=== PATIENT | female | born 1990 | race African-American/Black ===

== ENCOUNTER 2022-06-27 11:19 | Emergency (ER) | payer OTHER, SELFPAY ==
[2022-06-27] VITALS (11 sets, daily range): BP systolic 116–184; BP diastolic 57–107; PULSE 64–89; RESP 20; TEMP 36.5; O2SAT 92–100; BMI 40.3
[2022-06-27 12:05] LABS: Add Manual Diff / Slide Review NO; Basophils Absolute Auto 0 /uL (0-100); Basophils Percent Auto 0.8 % (0-2); Eosinophils Absolute Auto 300 /uL (0-450); Eosinophils Percent Auto 5.2 % (2-4); Hematocrit 37.3 % (36-46); Hemoglobin 12.2 g/dL (12.0-16.0); Lymphocytes Absolute Auto 2000 /uL (1100-4500); Lymphocytes Percent Auto 31.6 % (25-40); Mean Corpuscular HGB Conc 32.7 % (30-36); Mean Corpuscular Hemoglobin 25.7 PG (26-34); Mean Corpuscular Volume 78.6 fL (80-100); Monocytes Absolute Auto 600 /uL (0-900); Monocytes Percent Auto 9.7 % (3-14); Neutrophils Absolute Auto 3400 /uL (1500-7000); Neutrophils Percent Auto 52.7 % (50-75); Platelet Count 349 X10^3/uL (150-400); Red Blood Cell Count 4.74 X10^6/uL (4.0-5.2); Red Cell Distribution Width 16.9 % (11.6-14.8); White Blood Cell Count 6.4 X10^3/uL (4.5-11.0)
--- NOTE | 2022-06-27 12:10 | ED_ITS ---
HPI - Abdominal Pain <Demetrice García PA-C - Last Filed: 06/27/22 14:15> General Chief Complaint: Abdominal Pain Stated Complaint: sharp abd pain into r/leg Time Seen by Provider: 06/27/22 12:03 Source: patient Mode of arrival: Ambulatory History of Present Illness HPI narrative: 32-year-old female with no reported past medical history presents to the ED with 3 days of right-sided flank pain that wraps to the front, radiates down to the front of the right leg. Patient also notes some gurgling sounds from her abdo men. Patient denies any trauma. Patient denies fever, chills, chest pain, shortness of breath, nausea, vomiting, dysuria, diarrhea, lightheadedness, dizziness, syncope. No history of nephrolithiasis or cholelithiasis. Patient endorses 8/10 pain. Related Data Allergies Allergy/AdvReac Type Severity Reaction Status Date / Time No Known Drug Allergies Allergy Verified 06/27/22 11:39 Review of Systems <Demetrice García PA-C - Last Filed: 06/27/22 14:15> Review of Systems ROS Unobtainable: All systems reviewed & are unremarkable except as noted in HPI and below Constitutional Constitutional: Denies chills, Denies fatigue, Denies fever(s), Denies frequent falls, Denies lethargy and Denies weakness Eyes Eyes: Denies change in vision, Denies eye discharge, Denies irritation and Denies loss of vision ENT Ears, Nose, Mouth, and Throat: Denies change in voice, Denies dizziness, Denies neck pain, Denies sore throat and Denies throat swelling Cardiovascular Cardiovascular: Denies chest pain, Denies irregular heart rhythm, Denies l ightheadedness, Denies palpitations, Denies dyspnea, Denies dyspnea on exertion and Denies orthopnea Respiratory Respiratory: Denies cough, Denies dyspnea, Denies dyspnea on exertion and Denies wheezing Gastrointestinal Gastrointestinal: Reports abdominal pain, Denies change in bowel habits, Denies diarrhea, Denies nausea and Denies vomiting Comments: R sided flank pain Genitourinary Genitourinary: Denies hematuria, Denies flank pain, Denies urinary incontinence and Denies urinary urgency Musculoskeletal Musculoskeletal: Denies back pain, Denies muscle weakness, Denies neck pain, Denies numbness and Denies tingling Integumentary/Breasts Skin/Breast: Denies pruritus, Denies erythema, Denies rash and Denies wounds Neurologic Neurologic: Denies behavioral changes, Denies confusion, Denies dizziness, Denies frequent falls, Denies loss of vision, Denies numbness, Denies tingling and Denies weakness Psychiatric Psychiatric: Denies anxiety, Denies behavioral changes, Denies confusion, Denies depression, Denies homicidal ideation and Denies suicidal ideation Endocrine Endocrine: Denies fatigue, Denies flushing and Denies palpitations Hematologic/Lymphatic Hematologic/Lymphatic: Denies easy bruising Allergic/Immunologic Allergic/Immunologic: Denies urticaria, Denies throat swelling and Denies wheezing Patient History <Demetrice García PA-C - Last Filed: 06/27/22 14:15> Social History Smoking Status: Never smoker Smoking Status: Never smoker alcohol intake frequency: holidays/special occasions only Substance Use Type: does not use Exam <Demetrice García PA-C - Last Filed: 06/27/22 14:15> Narrative Exam Narrative: Const General:?cooperative, healthy appearing and comfortable [facility] Head:?normal to inspection Ears:?hearing grossly normal bilaterally Nose:?external nose normal Face and sinus:?normal facial exam and sinuses nontender Mouth:?oral mucosae normal Throat:?posterior oropharynx normal Eyes General:?appearance normal, both eyes and all related structures Neck Neck:?normal visual inspection and no lymphadenopathy noted Resp Effort & Inspection:?normal respiratory effort Auscultation:?clear to auscultation bilaterally Cardio Rate:?regular rate Rhythm:?regular rhythm GI Abdomen is soft, nondistended. Abdomen is tender to palpation in the right lower quadrant. There is no CVA tenderness. Neuro General:?patient alert, patient awake and patient oriented x3 Initial Vital Signs Initial Vital Signs: Vital Signs Temperature 97.7 F 06/27/22 11:35 Pulse Rate 84 06/27/22 11:35 Respiratory Rate 20 06/27/22 11:35 Blood Pressure 184/107 H 06/27/22 11:35 Pulse Oximetry 99 06/27/22 11:35 Oxygen Delivery Method Room Air 06/27/22 11:35 <Sahra Mello DO - Last Filed: 06/30/22 01:59> Initial Vital Signs Initial Vital Signs: Vital Signs Temperature 97.7 F 06/27/22 11:35 Pulse Rate 84 06/27/22 11:35 Respiratory Rate 20 06/27/22 11:35 Blood Pressure 184/107 H 06/27/22 11:35 Pulse Oximetry 99 06/27/22 11:35 Oxygen Delivery Method Room Air 06/27/22 11:35 Course <Demetrice García PA-C - Last Filed: 06/27/22 14:15> Orders Ordered: Discontinued Medications Ketorolac Tromethamine (Ketorolac 30 Mg/Ml Vial) 15 mg IV NOW ONE Stop: 06/27/22 12:21 Last Admin: 06/27/22 12:26 Dose: 15 mg Documented By: NICOLAS Ondansetron HCl (Ondansetron 4 Mg Odt) 4 mg PO NOW PRN PRN Reason: Nausea And Vomiting Ondansetron HCl (Ondansetron 4 Mg/2 Ml Inj) 4 mg IV NOW PRN PRN Reason: Nausea And Vomiting Vital Signs Vital signs: Vital Signs - 8 hr 06/27/22 11:35 06/27/22 11:39 06/27/22 11:59 Temperature 97.7 F Pulse Rate 84 76 Respiratory Rate 20 Blood Pressure 184/107 H 134/63 Pulse Oximetry 99 100 Oxygen Delivery Method Room Air 06/27/22 11:59 06/27/22 12:00 06/27/22 12:00 Temperature Pulse Rate 75 76 Respiratory Rate Blood Pressure 132/63 Pulse Oximetry 92 100 Oxygen Delivery Method Room Air 06/27/22 12:16 06/27/22 12:31 06/27/22 12:42 Temperature Pulse Rate 72 Respiratory Rate Blood Pressure 158/93 H 142/79 H Pulse Oximetry 99 Oxygen Delivery Method 06/27/22 12:42 06/27/22 13:00 06/27/22 13:00 Temperature Pulse Rate 89 65 Respiratory Rate Blood Pressure 130/85 Pulse Oximetry 100 100 Oxygen Delivery Method 06/27/22 13:30 06/27/22 13:30 06/27/22 14:00 Temperature Pulse Rate 67 64 Respiratory Rate Blood Pressure 137/77 Pulse Oximetry 100 99 Oxygen Delivery Method 06/27/22 14:01 06/27/22 14:01 Temperature Pulse Rate 68 Respiratory Rate Blood Pressure 116/57 L Pulse Oximetry 100 Oxygen Delivery Method Room Air <Sahra Mello DO - Last Filed: 06/30/22 01:59> Orders Ordered: Discontinued Medications Ketorolac Tromethamine (Ketorolac 30 Mg/Ml Vial) 15 mg IV NOW ONE Stop: 06/27/22 12:21 Last Admin: 06/27/22 12:26 Dose: 15 mg Documented By: NICOLAS Ondansetron HCl (Ondansetron 4 Mg Odt) 4 mg PO NOW PRN PRN Reason: Nausea And Vomiting Ondansetron HCl (Ondansetron 4 Mg/2 Ml Inj) 4 mg IV NOW PRN PRN Reason: Nausea And Vomiting Vital Signs Vital signs: Vital Signs - 8 hr 06/27/22 11:35 06/27/22 11:39 06/27/22 11:59 Temperature 97.7 F Pulse Rate 84 76 Respiratory Rate 20 Blood Pressure 184/107 H 134/63 Pulse Oximetry 99 100 Oxygen Delivery Method Room Air 06/27/22 11:59 06/27/22 12:00 06/27/22 12:00 Temperature Pulse Rate 75 76 Respiratory Rate Blood Pressure 132/63 Pulse Oximetry 92 100 Oxygen Delivery Method Room Air 06/27/22 12:16 06/27/22 12:31 06/27/22 12:42 Temperature Pulse Rate 72 Respiratory Rate Blood Pressure 158/93 H 142/79 H Pulse Oximetry 99 Oxygen Delivery Method 06/27/22 12:42 06/27/22 13:00 06/27/22 13:00 Temperature Pulse Rate 89 65 Respiratory Rate Blood Pressure 130/85 Pulse Oximetry 100 100 Oxygen Delivery Method 06/27/22 13:30 06/27/22 13:30 06/27/22 14:00 Temperature Pulse Rate 67 64 Respiratory Rate Blood Pressure 137/77 Pulse Oximetry 100 99 Oxygen Delivery Method 06/27/22 14:01 06/27/22 14:01 Temperature Pulse Rate 68 Respiratory Rate Blood Pressure 116/57 L Pulse Oximetry 100 Oxygen Delivery Method Room Air MDM - Abdominal Pain <Demetrice García PA-C - Last Filed: 06/27/22 14:15> Lab Data 06/27/22 11:55 06/27/22 11:55 Labs: Lab Results 06/27/22 06/27/22 Range/Units 11:55 11:55 WBC 6.4 (4.5-11.0) X10^3/uL RBC 4.74 (4.0-5.2) X10^6/uL Hgb 12.2 (12.0-16.0) g/dL Hct 37.3 (36-46) % MCV 78.6 L (80-100) fL MCH 25.7 L (26-34) PG MCHC 32.7 (30-36) % RDW 16.9 H (11.6-14.8) % Plt Count 349 (150-400) X10^3/uL Neut % (Auto) 52.7 (50-75) % Lymph % (Auto) 31.6 (25-40) % [place] % (Auto) 9.7 (3-14) % Eos % (Auto) 5.2 H (2-4) % Baso % (Auto) 0.8 (0-2) % Neut # (Auto) 3400 (4753-2531) /uL Lymph # (Auto) 2000 (1530-1546) /uL [place] # (Auto) 600 (0-900) /uL Eos # (Auto) 300 (0-450) /uL Baso # (Auto) 0 (0-100) /uL Sodium 137 (137-145) mmol/L Potassium 4.0 (3.4-5.1) mmol/L Chloride 103 (98-107) mmol/L Carbon Dioxide 26 (22-32) mmol/L BUN 8 (7-17) mg/dL Creatinine 0.69 (0.52-1.04) mg/dL Estimated GFR > 60 (>60) mL/min BUN/Creatinine Ratio 11.6 (6-22) Glucose 94 (70-100) mg/dL Calcium 8.8 (8.4-10.2) mg/dL Total Bilirubin 0.4 (0.2-1.3) mg/dL AST 25 (14-36) IU/L ALT 22 (<35) IU/L Alkaline Phosphatase 62 (38-126) U/L Total Protein 7.9 (6.3-8.2) g/dL Albumin 4.4 (3.5-5.0) g/dL Globulin 3.5 (1.7-4.1) g/dL Albumin/Globulin Ratio 1.3 (1.0-2.8) Lipase 67 (23-300) U/L Point of care testing: Point of Care Testing Test Results Negative Urine Dip Bedside Urine Glucose Negative Bedside Urine Bilirubin - Negative Bedside Urine Ketone - Negative Urine Specific [place] 1.015 Bedside Urine Occult Blood - Negative Bedside Urine pH 6.0 Bedside Urine Protein - Negative Bedside Urine Urobilinogen - Negative Bedside Urine Nitrite - Negative Bedside Urine Leukocytes - Negative Esterase MDM Narrative Medical decision making narrative: 32-year-old female with no reported past medical history presents to the ED with 3 days of right-sided flank pain that wraps to the front, radiates down to the front of the right leg. Concern for UTI versus pyelonephritis versus append icitis versus nephrolithiasis versus other intra-abdominal pathology versus musculoskeletal sprain/strain versus other. Will obtain labs, lipase, CT abdomen pelvis, UA, urine hCG. Will give ketorolac for symptoms. Will reassess. Labs, UA without acute findings. CT abdomen pelvis shows enteritis. Also shows a left-sided ovarian cyst. Patient's symptoms likely consistent with a musculoskeletal sprain/strain and the enteritis. Discussed findings with patient. Recommend supportive measures with hydration, bland foods, ibuprofen. ED return precautions were discussed with patient. Patient verbalized understanding. <Sahra Mello, DO - Last Filed: 06/30/22 01:59> Lab Data Labs: Lab Results 06/27/22 06/27/22 Range/Units 11:55 11:55 WBC 6.4 (4.5-11.0) X10^3/uL RBC 4.74 (4.0-5.2) X10^6/uL Hgb 12.2 (12.0-16.0) g/dL Hct 37.3 (36-46) % MCV 78.6 L (80-100) fL MCH 25.7 L (26-34) PG MCHC 32.7 (30-36) % RDW 16.9 H (11.6-14.8) % Plt Count 349 (150-400) X10^3/uL Neut % (Auto) 52.7 (50-75) % Lymph % (Auto) 31.6 (25-40) % [place] % (Auto) 9.7 (3-14) % Eos % (Auto) 5.2 H (2-4) % Baso % (Auto) 0.8 (0-2) % Neut # (Auto) 3400 (1666-2822) /uL Lymph # (Auto) 2000 (8000-9199) /uL [place] # (Auto) 600 (0-900) /uL Eos # (Auto) 300 (0-450) /uL Baso # (Auto) 0 (0-100) /uL Sodium 137 (137-145) mmol/L Potassium 4.0 (3.4-5.1) mmol/L Chloride 103 (98-107) mmol/L Carbon Dioxide 26 (22-32) mmol/L BUN 8 (7-17) mg/dL Creatinine 0.69 (0.52-1.04) mg/dL Estimated GFR > 60 (>60) mL/min BUN/Creatinine Ratio 11.6 (6-22) Glucose 94 (70-100) mg/dL Calcium 8.8 (8.4-10.2) mg/dL Total Bilirubin 0.4 (0.2-1.3) mg/dL AST 25 (14-36) IU/L ALT 22 (<35) IU/L Alkaline Phosphatase 62 (38-126) U/L Total Protein 7.9 (6.3-8.2) g/dL Albumin 4.4 (3.5-5.0) g/dL Globulin 3.5 (1.7-4.1) g/dL Albumin/Globulin Ratio 1.3 (1.0-2.8) Lipase 67 (23-300) U/L Point of care testing: Point of Care Testing Test Results Negative Urine Dip Bedside Urine Glucose Negative Bedside Urine Bilirubin - Negative Bedside Urine Ketone - Negative Urine Specific [place] 1.015 Bedside Urine Occult Blood - Negative Bedside Urine pH 6.0 Bedside Urine Protein - Negative Bedside Urine Urobilinogen - Negative Bedside Urine Nitrite - Negative Bedside Urine Leukocytes - Negative Esterase Discharge Plan Departure Patient Disposition: Home Clinical Impression: Enteritis Instructions: DI for Enteritis Activity Restrictions/Additional Instructions: You were evaluated in the ED today for right-sided flank and abdominal pain. Your labs, urine were normal. Your CT showed some enteritis, which is often caused by food poisoning. Please stay well hydrated, eat bland foods. It is likely that your symptoms on the right side are being caused by a mu sculoskeletal sprain/strain. You may continue to take ibuprofen 800 mg 3 times a day. Please take the ibuprofen with food. Return to the ED if your symptoms worsen, you develop a fever or chills, you are persistently vomiting. Referrals: Provider,Loren MCCLAIN [Primary Care Provider] - Stand Alone Forms: Patient Portal/API <Sahra Mello DO - Last Filed: 06/30/22 01:59> Cosign ED Attending Claraature Attestation: I was immediately available in the department for consultation. Documentation has been reviewed.
[2022-06-27 12:18] LABS: Alanine Aminotransferase 22 IU/L (<35); Albumin 4.4 g/dL (3.5-5.0); Albumin Globulin Ratio 1.3 (1.0-2.8); Alkaline Phosphatase 62 U/L (38-126); Aspartate Aminotransferase 25 IU/L (14-36); BUN Creatinine Ratio 11.6 (6-22); Bilirubin Total 0.4 mg/dL (0.2-1.3); Blood Urea Nitrogen 8 mg/dL (7-17); Calcium 8.8 mg/dL (8.4-10.2); Carbon Dioxide 26 mmol/L (22-32); Chloride 103 mmol/L (98-107); Estimated Glomerular Filt Rate > 60 mL/min (>60); Globulin 3.5 g/dL (1.7-4.1); Glucose 94 mg/dL (70-100); HEMOLYSIS < 15 (0-50); Lipase 67 U/L (23-300); Sodium 137 mmol/L (137-145); Total Protein 7.9 g/dL (6.3-8.2)
--- NOTE | 2022-06-27 12:20 | DI.CT.S_ITS ---
PROCEDURE: CT ABDOMEN PELVIS W CON INDICATIONS: r sided pain TECHNIQUE: After the administration of IV contrast, axial sections were acquired from the lung bases to the pubic symphysis. Coronal and sagittal reformats were performed. For radiation dose reduction, the following was used: automated exposure control, adjustment of mA and/or kV according to patient size. COMPARISON: None. FINDINGS: Image quality: Excellent. Lung bases: Unremarkable. Heart: No significant findings. ABDOMEN: Liver: No focal lesion. Gallbladder: Not distended. Biliary ducts: Unremarkable. Pancreas: No peripancreatic fluid collection demonstrated. Spleen: No splenomegaly. Adrenal Glands: No nodule. Kidneys and Ureters: No hydronephrosis. Stomach and Bowel: Stomach is not distended. Thickening of the proximal jejunum, (2/32). No small bowel obstruction. Normal appendix. No significant diverticulosis. Peritoneum: No abnormal intraperitoneal fluid. No free air. Ventral Wall: No hernia. Abdominal Nodes: No retroperitoneal or mesenteric adenopathy by size criteria. Vessels: Aorta and inferior vena cava are normal in size. PELVIS: Pelvic Organs: Anteverted uterus. No free fluid. Left ovarian cyst or mass measuring 2.9 cm. This measures 65 Hounsfield units. No internal fat density. Bladder: No stone. Pelvic Nodes: No enlarged lymph nodes. Miscellaneous: No inguinal hernias are seen. Bones: No suspicious lesion. IMPRESSION: 1. Proximal jejunal wall thickening. This is most indicative of an enteritis. Recommend clinical correlation. 2. No small bowel obstruction. No free fluid. Normal appendix. 3. Left ovarian cyst or mass measuring 2.9 cm. Recommend further evaluation with pelvic ultrasound. Dictated by: Kaz Lemus M.D. on 06/27/2022 at 13:22 Approved by: Kaz Lemus M.D. on 06/27/2022 at 13:30
[2022-06-27] MEDS: KETOROLAC 30 MG/ML VIAL 15 MG IV (12:26)
--- NOTE | 2022-06-27 12:45 | PC.NURSE ---
Patient reports she felt nausea immediately after CT Scan with small amount of vomit. States she has had a CT in the past without reaction. Pt breathing even and unlabored, no swelling to oral area noted, handling secretions. Pt educated to notify staff of any new symptoms. Dr. Mello aware. Pt offered Zofran, but reports resolve and declined dose at this time.
== END 2022-06-27 14:20 | disposition home or self-care (01) ==
PROVIDERS: Emergency Medicine; Emergency Provider Student in an Organized Health Care Education/Training Program
DX: K52.9 Noninfective gastroenteritis and colitis, unspecified (principal); N83.202 Unspecified ovarian cyst, left side
CPT/HCPCS: 36415; 74177; 80053; 81003; 81025; 83690; 85025; 96374; 99284; J1885; J2405; Q9967